=== PATIENT | male | born 1950 | race Caucasian/White ===

== ENCOUNTER 2018-02-05 13:33 | Emergency (ER) | payer OTHER ==
--- NOTE | 2018-02-05 14:09 | ERPHSYRPT ---
- History of Present Illness Time Seen by Provider: 02/05/18 14:01 Historian: patient, family Exam Limitations: no limitations Patient Subjective Stated Complaint: vomiting since yesterday. llq abd pain Triage Nursing Assessment: to room per w/c. skin w/d, color normal, resp easy. abd soft, tender. denies diarrhea. Physician History: The patient is a 67-year-old male with his complaining of nausea and vomiting that began yesterday while at work. It was very hot yesterday. He hasn't been able to drink anything since yesterday because the vomiting. He denies being lightheaded. He denies diarrhea or constipation. He does complain of some left-sided abdominal pain but he believes it is the same kind of pain that he has with his ulcerative colitis. He denies fever. His past medical history is significant for ulcerative colitis. Timing/Duration: yesterday, constant, sudden Activities at Onset: none Quality: aching Abdominal Pain Onset Location: LUQ, LLQ Pain Radiation: no radiation Severity of Pain-Max: mild Severity of Pain-Current: mild Modifying Factors: Improves With: vomiting Associated Symptoms: nausea, vomiting, weakness, No diarrhea Previous symptoms: same symptoms as today Allergies/Adverse Reactions: No Known Drug Allergies Allergy (Verified 02/05/18 13:53) Home Medications: Escitalopram Oxalate 10 mg [Lexapro 10 MG] 10 mg PO DAILY 02/05/18 [History] Hyoscyamine Sulfate 0.375 mg [Levbid 0.375 mg Sr] 0.375 mg PO 02/05/18 [ History] Levothyroxine Sodium 88 Mcg [Synthroid 88 Mcg] 88 mcg PO DAILY 02/05/18 [ History] sulfaSALAzine [Sulfasalazine] 500 mg PO BID 02/05/18 [History] Hx Tetanus, Diphtheria Vaccination/Date Given: No Hx Influenza Vaccination/Date Given: Yes Hx Pneumococcal Vaccination/Date Given: No Immunizations Up to Date: No - Review of Systems Constitutional: No Fever, No Chills Eyes: No Symptoms Ears, Nose, & Throat: No Symptoms Respiratory: No Cough, No Dyspnea Cardiac: No Chest Pain, No Edema, No Syncope Abdominal/Gastrointestinal: Abdominal Pain, Nausea, Vomiting, No Diarrhea, No Constipation Genitourinary Symptoms: No Dysuria Musculoskeletal: No Back Pain, No Neck Pain Skin: No Rash Neurological: No Dizziness, No Focal Weakness, No Sensory Changes Psychological: No Symptoms Endocrine: No Symptoms Hematologic/Lymphatic: No Symptoms Immunological/Allergic: No Symptoms All Other Systems: Reviewed and Negative - Past Medical History Pertinent Past Medical History: Yes GI Medical History: Colitis, Diverticulosis, GERD Psycho-Social History: Depression Male Reproductive Disorders: Prostate Cancer Other Medical History: LYMPHOMA - Past Surgical History Past Surgical History: Yes Musculoskeletal: Orthopedic Surgery - Social History Smoking Status: Never smoker Exposure to second hand smoke: No Drug Use: none Patient Lives Alone: No - Nursing Vital Signs Nursing Vital Signs: Initial Vital Signs Temperature 98.1 F 02/05/18 13:46 Pulse Rate 85 02/05/18 13:46 Respiratory Rate 16 02/05/18 13:46 Blood Pressure 100/68 02/05/18 13:46 O2 Sat by Pulse Oximetry 98 02/05/18 13:46 Pain Scale Pain Intensity 2 - Physical Exam General Appearance: mild distress Eye Exam: PERRL/EOMI, eyes nml inspection Ears, Nose, Throat Exam: normal ENT inspection, pharynx normal, moist mucous membranes Neck Exam: normal inspection, non-tender, supple, full range of motion Respiratory Exam: normal breath sounds, lungs clear, No respiratory distress Cardiovascular Exam: regular rate/rhythm, normal heart sounds Gastrointestinal/Abdomen Exam: tenderness (mild on left side) Rectal Exam: not done Back Exam: normal inspection, normal range of motion, No CVA tenderness, No vertebral tenderness Extremity Exam: normal inspection, normal range of motion, pelvis stable Neurologic Exam: alert, oriented x 3, cooperative, normal mood/affect, nml cerebellar function, sensation nml, No motor deficits Skin Exam: normal color, warm, dry SpO2 Interpretation: normal SpO2: 98 Oxygen Delivery: Room Air - CT Exams Abdomen/Pelvis CT Interpretation: Tele-radiologist Report, Other (indeterminant hepatic hypodense lesions; gallbladder slludge/gravel; per Dr Quinn) - Radiology Ultrasound Exam Gallbladder Ultrasound: gall bladder stones (per U/S technologist) Ordered Tests: Active Orders 24 hr Category Date Time Status IV Insertion STAT Care 02/05/18 14:13 Active ABDOMEN AND PELVIS W/0 CONTRAS [CT] Stat Exams 02/05/18 15:09 Completed GALLBLADDER [US] Stat Exams 02/05/18 16:18 Taken AMYLASE Stat Lab 02/05/18 14:20 Completed CBC W DIFF Stat Lab 02/05/18 14:20 Completed CMP Stat Lab 02/05/18 14:20 Completed LIPASE Stat Lab 02/05/18 14:20 Completed Lactic Acid Stat Lab 02/05/18 15:23 Completed Medication Summary Discontinued Medications Generic Name Dose Route Start Last Admin Trade Name Freq PRN Reason Stop Dose Admin Famotidine 20 mg 02/05/18 14:13 02/05/18 14:26 Pepcid 20 Mg Vial IV 02/05/18 14:14 20 mg STAT ONE Administration Famotidine Confirm 02/05/18 14:23 Pepcid 20 Mg Vial Administered 02/05/18 14:24 Dose 20 mg IV .STK-MED ONE Sodium Chloride 1,000 mls @ 999 mls/hr 02/05/18 14:13 02/05/18 14:26 Sodium Chloride 0.9% 1000 Ml IV 02/05/18 15:13 999 mls/hr .Q1H1M STA Administration Sodium Chloride Confirm 02/05/18 14:23 Sodium Chloride 0.9% 1000 Ml Administered 02/05/18 14:24 Dose 1,000 mls @ ud .ROUTE .STK-MED ONE Sodium Chloride 1,000 mls @ 999 mls/hr 02/05/18 16:17 02/05/18 16:28 Sodium Chloride 0.9% 1000 Ml IV 02/05/18 17:17 999 mls/hr .Q1H1M STA Administration Sodium Chloride Confirm 02/05/18 16:21 Sodium Chloride 0.9% 1000 Ml Administered 02/05/18 16:22 Dose 1,000 mls @ ud .ROUTE .STK-MED ONE Ondansetron HCl 4 mg 02/05/18 14:13 02/05/18 14:26 Zofran 4 Mg/2 Ml Vial IV 02/05/18 14:14 4 mg STAT ONE Administration Ondansetron HCl Confirm 02/05/18 14:22 Zofran 4 Mg/2 Ml Vial Administered 02/05/18 14:23 Dose 4 mg .ROUTE .STK-MED ONE Promethazine HCl 25 mg 02/05/18 16:17 02/05/18 16:28 Phenergan 25 Mg Inj IV 02/05/18 16:18 25 mg STAT ONE Administration Promethazine HCl Confirm 02/05/18 16:21 Phenergan 25 Mg Inj Administered 02/05/18 16:22 Dose 25 mg .ROUTE .STK-MED ONE Lab/Rad Data: Laboratory Result Diagrams 02/05/18 14:20 02/05/18 14:20 Laboratory Results 02/05/18 02/05/18 02/05/18 Range/Units 15:23 14:20 14:20 WBC 8.9 (4.0-10.5) K/mm3 RBC 3.94 L (4.1-5.6) M/mm3 Hgb 13.3 (12.5-18.0) gm/dl Hct 40.3 L (42-50) % MCV 102.3 H (78-100) fl MCH 33.7 H (26-32) pg MCHC 33.0 (32-36) g/dl RDW 14.7 H (11.5-14.0) % Plt Count 269 (150-450) K/mm3 MPV 9.8 H (6-9.5) fl Gran % 64.5 (36.0-66.0) % Eos # (Auto) 0.14 (0-0.5) Absolute Lymphs (auto) 2.22 (1.0-4.6) Absolute Monos (auto) 0.75 (0.0-1.3) Lymphocytes % 25.1 (24.0-44.0) % Monocytes % 8.5 (0.0-12.0) % Eosinophils % 1.6 (0.00-5.0) % Basophils % 0.3 (0.0-0.4) % Absolute Granulocytes 5.72 (1.4-6.9) Basophils # 0.03 (0-0.4) Sodium 141 (137-145) mmol/L Potassium 3.8 (3.5-5.1) mmol/L Chloride 106 (98-107) mmol/L Carbon Dioxide 22 (22-30) mmol/L Anion Gap 15.9 H (5-15) MEQ/L BUN 12 (9-20) mg/dL Creatinine 0.91 (0.66-1.25) mg/dL Estimated GFR > 60.0 ML/MIN Glucose 108 H (74-106) mg/dL Lactic Acid 1.5 (0.4-2.0) Calcium 9.2 (8.4-10.2) mg/dL Total Bilirubin 0.60 (0.2-1.3) mg/dL AST 41 (17-59) U/L ALT 43 (0-50) U/L Alkaline Phosphatase 51 (38-126) U/L Serum Total Protein 7.2 (6.3-8.2) g/dL Albumin 4.4 (3.5-5.0) g/dL Amylase 71 (30-110) U/L Lipase 85 (23-300) U/L - Progress Progress: improved Progress Note: 02/05/18 18:13 PE did not show any RUQ abd pain. 02/05/18 18:33 Pt received zofran 4 mg, phenergan 25 mg, and 2 L of NS by IV. Counseled pt/family regarding: lab results, diagnosis, need for follow-up, rad results - Departure Time of Disposition: 18:34 Departure Disposition: Home Clinical Impression: Vomiting Condition: Stable Critical Care Time: No Referrals: RANDY MARTELL MD [Primary Care Provider] - Additional Instructions: You had been experiencing vomiting and that led to dehydration. You received Zofran 4 mg, Phenergan 25 mg, and 2 L of fluids by IV in the ER. The CT scan of her abdomen and the gallbladder ultrasound showed gallstones. Because you were not tender to touch over the gallbladder, and because your white count was normal, I would like for you to follow-up tomorrow with a call to Dr. Martell regarding the findings of gallstones. You may continue to take either Phenergan 25 mg every 8 hours or Zofran 4 mg ODT every 6 hours. Prescriptions: Ondansetron ODT 4 MG [Zofran Odt 4 mg] 1 tab PO Q6H PRN PRN #10 tab.rapdis PRN Reason: Nausea/Vomiting Promethazine HCl 25 mg [Phenergan 25 mg] 25 mg PO Q8H PRN PRN #10 tablet PRN Reason: Vomiting
[2018-02-05] MEDS ORDERED: Zofran 4 MG/2 ML VIAL IV ONE (14:13)
[2018-02-05] MEDS ORDERED: Sodium Chloride 0.9% 1000 ML 1,000 ML IV STA ×2 (14:13→16:17)
[2018-02-05] MEDS ORDERED: Pepcid 20 MG VIAL IV ONE ×2 (14:13→14:23)
[2018-02-05] MEDS ORDERED: Zofran 4 MG/2 ML VIAL ONE (14:22)
[2018-02-05] MEDS ORDERED: Sodium Chloride 0.9% 1000 ML 1,000 ML ONE ×2 (14:23→16:21)
[2018-02-05 14:27] LABS: BASOPHIL % 0.3 % (0.0-0.4); Basophil (Absolute #) 0.03 (0-0.4); Eosinophil % 1.6 % (0.00-5.0); Eosinophil (Absolute #) 0.14 (0-0.5); Granulocyte Absolute (ANC) 5.72 (1.4-6.9); Granulocytes % 64.5 % (36.0-66.0); Hematocrit 40.3 % (42-50); Hemoglobin 13.3 gm/dl (12.5-18.0); Lymphocyte (Absolute #) 2.22 (1.0-4.6); Lymphocytes % 25.1 % (24.0-44.0); Mean Cell Volume 102.3 fl (78-100); Mean Platelet Volume 9.8 fl (6-9.5); Monocyte (Absolute #) 0.75 (0.0-1.3); Monocytes % 8.5 % (0.0-12.0); Platelet Count 269 K/mm3 (150-450); Red Blood Count 3.94 M/mm3 (4.1-5.6); Red Cell Distribution Width 14.7 % (11.5-14.0); White Blood Count 8.9 K/mm3 (4.0-10.5)
[2018-02-05 14:39] LABS: Mean Corpuscular Hemoglobin 33.7 pg (26-32)
[2018-02-05 14:45] LABS: ALBUMIN 4.4 g/dL (3.5-5.0); ALKALINE PHOSPHATASE 51 U/L (38-126); AMYLASE 71 U/L (30-110); ANION GAP 15.9 MEQ/L (5-15); BLOOD UREA NITROGEN 12 mg/dL (9-20); CHLORIDE 106 mmol/L (98-107); Calcium 9.2 mg/dL (8.4-10.2); Carbon Dioxide 22 mmol/L (22-30); Creatinine 1 0.91 mg/dL (0.66-1.25); Glucose 108 mg/dL (74-106); LIPASE 85 U/L (23-300); Potassium 3.8 mmol/L (3.5-5.1); SGOT/AST 41 U/L (17-59); SGPT/ALT 43 U/L (0-50); SODIUM 141 mmol/L (137-145); Total Protein 7.2 g/dL (6.3-8.2)
[2018-02-05 16:01] VITALS: O2SAT 98
--- NOTE | 2018-02-05 16:15 | XRAY ---
Indication: Nausea and vomiting. Multiple contiguous axial images obtained through the abdomen and pelvis without contrast as ordered. Comparison: None Lung bases demonstrates mild pulmonary emphysema with minimal bilateral dependent atelectasis. No infiltrate or effusion. Heart is not enlarged. Noncontrasted stomach and bowel loops appear nonobstructed. Undigested medication/pills in the cecum. Appendix not seen. No free fluid/air. Liver demonstrates a few small round indeterminate hypodense lesions, largest in the inferior right lobe measuring 2.1 cm. Minimal gallbladder sludge/gravel without abnormal biliary distention. Benign prostate calcifications. Remaining liver, gallbladder, pancreas, spleen, adrenal glands, kidneys, ureters, and bladder appear unremarkable for noncontrast exam. Moderate aortoiliac calcifications without AAA. Osseous structures intact with lower lumbar degenerative changes. No ventral or inguinal hernias. Impression: 1. Indeterminant hepatic hypodense lesions on this noncontrast exam. Contrasted exam may yield further information if clinically warranted. 2. Gallbladder sludge/gravel better evaluated with ultrasound. 3. Pulmonary emphysema and benign prostate calcifications. CTDI 8.44
[2018-02-05] MEDS ORDERED: Phenergan 25 MG INJ IV ONE (16:17)
[2018-02-05] MEDS ORDERED: Phenergan 25 MG INJ ONE (16:21)
[2018-02-05 17:12] VITALS: PULSE 87
--- NOTE | 2018-02-05 18:47 | XRAY ---
Indication: Gallbladder gravel/sludge on same-day CT. Two-dimensional gallbladder sonogram performed. Comparison: None Gallbladder partially contracted with mild intraluminal sludge and tiny gallstones in the dependent portion. Borderline gallbladder wall thickening reasonably explained by contracted gallbladder. No pericholecystic fluid. Common bile duct measures 3.5 mm. No intrahepatic biliary distention. Visualized portions of the liver demonstrates multiple cysts, largest 2.1 cm in the right lobe. No solid hepatic mass or ascites. Right kidney measures 8.7 cm in length and appears sonographically unremarkable. Impression: 1. Contracted gallbladder with intraluminal sludge/gallstones. No sonographic evidence for acute cholecystitis or biliary distention. 2. Incidental hepatic cysts. Comment: Preliminary report was given.
[2018-02-05 19:03] VITALS: BP 122/66
== END 2018-02-05 18:58 | disposition home or self-care (01) ==
LOC: ED 13:33
DX: R11.2 Nausea with vomiting, unspecified (principal); E86.0 Dehydration; R10.32 Left lower quadrant pain; R10.12 Left upper quadrant pain; Z79.899 Other long term (current) drug therapy; K80.80 Other cholelithiasis without obstruction
CPT/HCPCS: 36000; 36415; 74176; 76705; 80053; 82150; 83605; 83690; 85025; 96360; 96361; 96374; 96375; 99285; J2405; J2550

== ENCOUNTER 2018-03-18 10:45 | Day surgery (SDC) | payer OTHER ==
--- NOTE | 2018-03-18 09:02 | HP ---
DATE OF SURGERY: 03/18/2018 HISTORY OF PRESENT ILLNESS: The patient is a 67 year-old who had first episode five years ago. He had been doing well until a few weeks ago. He was in the emergency department. CT scan showed gallstones. No pain. No jaundice. History of ulcerative colitis in the past. Apparently just nausea and vomiting. PAST MEDICAL HISTORY: Ulcerative colitis, hypothyroidism. PAST SURGICAL HISTORY: Right knee surgery and back surgery in the past. MEDICATIONS: Citalopram, ferrous sulfate, folic acid, hyoscyamine, Imodium AD, levothyroxine for hypothyroidism, ondansetron, promethazine, sulfasalazine, triamcinolone cream. ALLERGIES: LATEX, NATURAL RUBBER. FAMILY HISTORY: Heart disease in the family. SOCIAL HISTORY: No smoking or alcohol abuse. REVIEW OF SYSTEMS: Twelve systems reviewed. No chest pain or palpitations other systems negative or noncontributory as above and per preadmission questionnaire. PHYSICAL EXAMINATION: GENERAL: No acute distress. HEENT: Sclerae nonicteric. NECK: No JVD. CHEST: Equal excursion, nonlabored breathing. CVS: Regular rate and rhythm. ABDOMEN: Soft. No peritoneal signs. EXTREMITIES: No significant edema. NEURO: Alert, moving extremities symmetrically. No gross motor deficits noted. IMPRESSION: Symptomatic cholelithiasis probable chronic cholecystitis. I feel the patient will benefit from cholecystectomy. Shown the gallbladder pamphlet, risk sheet and explained the procedure in detail including but not limited to bleeding or infection, risk of bowel injury or perforation, risk of trocar injury or hernia, small risk of bile leak, bile duct injury, retained stone or sludge possibly requiring further procedure either open or ERCP, general risk of anesthesia, deep venous thrombosis, pulmonary embolism, pneumonia possibility need to convert to open procedure, possibility the procedure may not improve his symptoms. He may need further work up and/or testing, endoscopy, other studies or procedures. He understands and agrees to the planned procedure, will proceed with laparoscopic cholecystectomy with possible open as an outpatient.
[~2018-03-18 10:45] MED LIST: Lactated Ringers 1,000 ML IV ONE; Sensorcaine 0.25% 10 ML ONE
[2018-03-18] MEDS ORDERED: Quelicin Fliptop 200 MG/10 ML IJ ONE (10:46)
[2018-03-18] MEDS ORDERED: TORAdol 30 mg Injection IJ ONE (10:46)
[2018-03-18] MEDS ORDERED: Decadron 4 MG INJ IV ONE (10:46)
[2018-03-18] MEDS ORDERED: DIPRIVAN 200 MG/20 ML IV ONE (10:46)
[2018-03-18] MEDS ORDERED: BRIDION 200MG/2ML IV ONE (10:46)
[2018-03-18] MEDS ORDERED: SUBLIMAZE 100 MCG/2 ML IV ONE (10:46)
[2018-03-18] MEDS ORDERED: Zemuron 100 MG/10 ML IJ ONE (10:46)
[2018-03-18] MEDS ORDERED: Zofran 4 MG/2 ML VIAL IV ONE (10:46)
[2018-03-18] MEDS ORDERED: MEFOXIN 2 GM PREMIX** 2 GM/50 ML ML IV SCH (11:00)
[2018-03-18] MEDS ORDERED: Lactated Ringers 1,000 ML IV SCH (11:00)
[2018-03-18] MEDS ORDERED: Lactated Ringers 1,000 ML IV ONE (11:38)
[2018-03-18] MEDS ORDERED: Zofran 4 MG/2 ML VIAL IV STA (11:39)
[2018-03-18] MEDS ORDERED: SUBLIMAZE 100 MCG/2 ML ONE (14:35)
[2018-03-18] MEDS ORDERED: NORCO 5/325 MG PO PRN (15:56)
[2018-03-18] MEDS ORDERED: NORCO 5/325 MG ONE (15:58)
[2018-03-18 16:18] VITALS: O2SAT 98
[2018-03-18 17:06] VITALS: BP 129/69; PULSE 75
--- NOTE | 2018-03-19 10:15 | OP ---
SURGERY DATE/TIME: 03/18/2018 1320 PREOPERATIVE DIAGNOSIS: Symptomatic cholelithiasis, chronic cholecystitis. POSTOPERATIVE DIAGNOSIS: Chronic cholecystitis, cholelithiasis. PROCEDURE: Laparoscopic cholecystectomy. SURGEON: Dr. Harpal Malone. ASSISANT: Phil Terrell M.D., [facility] Resident. ANESTHESIA: General. ESTIMATED BLOOD LOSS: Minimal. INDICATIONS: As noted above. Risks and benefits explained in detail but not limited to and consent obtained. DESCRIPTION OF PROCEDURE AND FINDINGS: The patient was taken to the OR. General anesthesia induced. After official time out and no disagreement with planned procedure, prepped and draped in usual sterile fashion, a transverse incision made at the supraumbilical area. Fascia grasped and pulled upward. Veress needle inserted and tested with saline. Pneumoperitoneum accomplished insufflating opening pressure of 0-15. He had some CO2 insufflated in the preperitoneal space. A 5 mm bladeless port and camera inserted intraabdominal secondary to port replacement. Two - 5 mm right upper quadrant ports placed and 5 mm epigastric port and a 10/11 was placed at the umbilical area. Again, there was no evidence of any visceral or other issues just a little bit of CO2 insufflated in the preperitoneal space which had fairly dissipated by the end of the procedure. The gallbladder is grasped. It had extensive chronic inflammatory reaction chronic. It was dissected posterior-lateral to anterior fashion. This took quite some time given extensive dense chronic inflammatory reaction but slowly and carefully accomplished. Cystic duct dissected off allowing access to the artery which is isolated, clipped x3 and divided, this opened up the angle. Cystic duct infundibular junction slowly and carefully well skeletonized until critical view obtained both anteriorly and posteriorly this was clipped x3 and divided in usual fashion. There was quite chronic vascular inflammatory reaction. It required clipping additional oozing side branches off the cystic artery that were oozing directly on the gallbladder as necessary. The gallbladder is slowly and carefully dissected free from its dense almost concrete attachments to the liver bed staying directly on the gallbladder wall. One of the retractors tore a small pin hole and a small amount of bile spilled. There is no evidence of any obvious stone spillage. After confirming the clips to be in place in cystic duct and cystic artery stumps, the gallbladder is released from its final attachments, placed in Pleatman sac and pulled out the 10/11 port at the supraumbilical area and passed off. Fascial defect closed with two - #1 Vicryl with puncture closure device under direct vision of the camera. There had been a little bit of ooze in the fascial defect at the second suture. Good hemostasis noted. Port had been replaced. Copious amount of irrigation accomplished laterally to the liver and subhepatic space irrigating until clear. Liver bed re-inspected. There was a small amount of ooze on the liver capsule perineal edge. There were small oozing vessels controlled with Ligaclips. Good hemostasis noted. Clips noted in place in cystic duct and cystic artery stumps. There were no signs of any active bleeding or bile leakage. It was felt there was no benefit from drain placement. Copious amount of irrigation irrigating clear. At this point pneumoperitoneum decompressed. The wound was irrigated out. Skin incision closed with 4-0 Vicryl. Steri-Strips and sterile dressing applied. 0.25% Marcaine local injected along the skin incision fascial defect. The patient tolerated the procedure well. There were no immediate complications. Findings discussed with the family out in the waiting area.
== END 2018-03-18 17:00 | disposition home or self-care (01) ==
LOC: SDC 10:45
PROVIDERS: ATTEND Surgery
DX: K80.10 Calculus of gallbladder with chronic cholecystitis without obstruction (principal); E03.9 Hypothyroidism, unspecified
CPT/HCPCS: 88304; 94250; J0330; J0694; J1100; J1885; J2405; J2704; J3010; A9270-GY

== ENCOUNTER 2018-03-20 23:02 | Emergency (ER) | payer OTHER ==
--- NOTE | 2018-03-20 23:37 | ERPHSYRPT ---
- History of Present Illness Time Seen by Provider: 03/20/18 23:20 Source: patient, family Exam Limitations: no limitations Patient Subjective Stated Complaint: pt is alert and oriented. pt is ambulatory. pt states that he had a cholecystectomy on sunday03/18/18 with no complications post op. pt states that tonight when he was getting into the shower he noticed a bruise on his LRQ. pt has a small incision on his LRQ, upper center of abdomen, and above his umbilicus. pt has a bruise along his lower left hip. pt denies hitting it or falling down. Triage Nursing Assessment: see above Physician History: 67 y/o white male presents 2 days post laparoscopic cholecystectomy. pt c/o new bruising right side of abd inferior to and posterolateral to ruq port site. pt states he is feeling well, eating well and does not have any sig increase in pain. he is primarily concerned about the new bruising present. his preop hemoglobin 11.6 on 03/02/18. Timing/Duration: today Severity: mild Location: torso Possible Causes: other (post op) Associated Symptoms: denies symptoms, No blisters, No change in skin texture, No difficulty breathing Allergies/Adverse Reactions: Latex, Natural Rubber Allergy (Severe, Verified 03/13/18 12:31) Rash Rash and swelling Home Medications: Hyoscyamine Sulfate 0.375 mg [Levbid 0.375 mg Sr] 0.375 mg PO TID PRN 02/05 [History] Levothyroxine Sodium 88 Mcg [Synthroid 88 Mcg] 88 mcg PO DAILY 02/05/18 [ History] sulfaSALAzine [Sulfasalazine] 500 mg PO BID 02/05/18 [History] Escitalopram Oxalate 20 mg PO DAILY 03/13/18 [History] Ferrous Sulfate 325 mg [Feosol 325 mg] 325 mg PO BID 03/13/18 [History] Folic Acid 1 mg [Folate 1 mg] 1 mg PO DAILY 03/13/18 [History] Loperamide HCl [Imodium A-D] 2 mg PO DAILY 03/13/18 [History] Promethazine HCl 25 mg [Phenergan 25 mg] 25 mg PO Q6-8HPRN PRN 03/13/18 [ History] Triamcinolone 0.025% Cream [Triamcinolone Acetonide] 0.5 TOP BID 03/13/18 [ History] Hx Tetanus, Diphtheria Vaccination/Date Given: Yes Hx Influenza Vaccination/Date Given: Yes Hx Pneumococcal Vaccination/Date Given: No Immunizations Up to Date: Yes - Review of Systems Constitutional: No Symptoms, No Fever, No Chills, No Fatigue, No Lethargy, No Weakness Eyes: No Symptoms Ears, Nose, & Throat: No Symptoms Respiratory: No Symptoms, No Dyspnea, No Dyspnea on Exertion (LA), No Stridor, No Wheezing Cardiac: No Symptoms, No Chest Pain, No Palpitations, No Syncope Abdominal/Gastrointestinal: No Symptoms, No Abdominal Pain, No Nausea, No Vomiting, No Diarrhea Genitourinary Symptoms: No Symptoms, No Dysuria, No Frequency, No Hematuria Skin: Other (post op ecchymosis) Neurological: No Symptoms, No Dizziness, No Focal Weakness, No Gait Changes Psychological: No Symptoms, No Alcohol Abuse, No Drug Abuse, No Anxiety Endocrine: No Symptoms Hematologic/Lymphatic: Anemia (chronic ) Immunological/Allergic: No Symptoms - Past Medical History Pertinent Past Medical History: Yes Neurological History: No Pertinent History ENT History: No Pertinent History Cardiac History: No Pertinent History Respiratory History: No Pertinent History Endocrine Medical History: No Pertinent History Musculoskeletal History: No Pertinent History GI Medical History: Colitis, Diverticulosis, GERD History: No Pertinent History Psycho-Social History: No Pertinent History Male Reproductive Disorders: No Pertinent History Other Medical History: Former smoker. Hx of anemia. ulcertive colitis - Past Surgical History Past Surgical History: Yes Neuro Surgical History: No Pertinent History Cardiac: No Pertinent History Respiratory: No Pertinent History Gastrointestinal: Cholecystectomy Genitourinary: No Pertinent History Musculoskeletal: No Pertinent History, Orthopedic Surgery Male Surgical History: No Pertinent History Other Surgical History: lower back surgery. - Social History Smoking Status: Former smoker Exposure to second hand smoke: No Drug Use: none Patient Lives Alone: No - Nursing Vital Signs Nursing Vital Signs: Initial Vital Signs Temperature 98.0 F 03/20/18 23:03 Pulse Rate 77 03/20/18 23:03 Respiratory Rate 134 H 03/20/18 23:03 Blood Pressure 134/65 03/20/18 23:03 O2 Sat by Pulse Oximetry 99 03/20/18 23:03 Pain Scale Pain Intensity 2 - Physical Exam General Appearance: no apparent distress Eye Exam: PERRL/EOMI, eyes nml inspection Ears, Nose, Throat Exam: normal ENT inspection Neck Exam: normal inspection, non-tender, supple, full range of motion Respiratory Exam: normal breath sounds, lungs clear, airway intact, No chest tenderness, No respiratory distress Cardiovascular Exam: regular rate/rhythm, normal heart sounds, normal peripheral pulses Gastrointestinal/Abdomen Exam: soft, normal bowel sounds, ecchymosis (mild band horizontally oriented inferior and posterolateral to ruq port incision site), No tenderness Rectal Exam: deferred Back Exam: normal inspection, normal range of motion, No vertebral tenderness Extremity Exam: normal inspection, normal range of motion, pelvis stable Neurologic Exam: alert, oriented x 3, cooperative, deep sea diver II-XII nml as tested, normal mood/affect, nml cerebellar function, nml station & gait Skin Exam: normal color, warm, dry, ecchymosis Lymphatic Exam: No adenopathy SpO2 Interpretation: normal SpO2: 99 Oxygen Delivery: Room Air - Course Nursing assessment & vital signs reviewed: Yes Ordered Tests: Active Orders 24 hr Category Date Time Status CBC W DIFF Stat Lab 03/20/18 00:01 Completed Lab/Rad Data: Laboratory Result Diagrams 03/20/18 00:01 Laboratory Results 03/20/18 Range/Units 00:01 WBC 5.6 (4.0-10.5) K/mm3 RBC 3.02 L (4.1-5.6) M/mm3 Hgb 10.0 L (12.5-18.0) gm/dl Hct 31.2 L (42-50) % MCV 103.3 H (78-100) fl MCH 33.1 H (26-32) pg MCHC 32.1 (32-36) g/dl RDW 14.3 H (11.5-14.0) % Plt Count 236 (150-450) K/mm3 MPV 9.7 H (6-9.5) fl Gran % 46.1 (36.0-66.0) % Eos # (Auto) 0.33 (0-0.5) Absolute Lymphs (auto) 1.86 (1.0-4.6) Absolute Monos (auto) 0.78 (0.0-1.3) Lymphocytes % 33.3 (24.0-44.0) % Monocytes % 14.0 H (0.0-12.0) % Eosinophils % 5.9 H (0.00-5.0) % Basophils % 0.7 (0.0-0.4) % Absolute Granulocytes 2.57 (1.4-6.9) Basophils # 0.04 (0-0.4) - Progress Progress: unchanged, re-examined Progress Note: 03/21/18 00:16 pt without any complaints. hgb 10.0 reviewed with pt. Counseled pt/family regarding: lab results, diagnosis - Departure Time of Disposition: 00:16 Departure Disposition: Home Clinical Impression: Encounter for postoperative wound check Condition: Good Critical Care Time: No Referrals: RANDY MARTELL MD [Primary Care Provider] - Additional Instructions: continue your postoperative instructions. follow up with your surgeon for further management
[2018-03-21 00:08] LABS: BASOPHIL % 0.7 % (0.0-0.4); Basophil (Absolute #) 0.04 (0-0.4); Eosinophil % 5.9 % (0.00-5.0); Eosinophil (Absolute #) 0.33 (0-0.5); Granulocyte Absolute (ANC) 2.57 (1.4-6.9); Granulocytes % 46.1 % (36.0-66.0); Hematocrit 31.2 % (42-50); Lymphocyte (Absolute #) 1.86 (1.0-4.6); Lymphocytes % 33.3 % (24.0-44.0); Mean Cell Volume 103.3 fl (78-100); Mean Corpuscular Hemoglobin 33.1 pg (26-32); Mean Corpuscular Hgb Concent. 32.1 g/dl (32-36); Mean Platelet Volume 9.7 fl (6-9.5); Monocyte (Absolute #) 0.78 (0.0-1.3); Platelet Count 236 K/mm3 (150-450); Red Blood Count 3.02 M/mm3 (4.1-5.6); Red Cell Distribution Width 14.3 % (11.5-14.0); White Blood Count 5.6 K/mm3 (4.0-10.5)
[2018-03-21 00:20] VITALS: BP 119/61; PULSE 74; O2SAT 98
== END 2018-03-21 00:28 | disposition home or self-care (01) ==
LOC: ED 23:02
DX: L76.82 Other postprocedural complications of skin and subcutaneous tissue (principal); Z90.49 Acquired absence of other specified parts of digestive tract
CPT/HCPCS: 36415; 85025; 99283

== ENCOUNTER 2023-08-10 19:22 | Emergency (ER) | payer MEDICARE ==
[2023-08-10 19:58] VITALS: RESP 18; TEMP 102.2
[2023-08-10] MEDS ORDERED: HYDROCODONE-ACETAMIN 2.5-108/5 ML SOLUTION PO STA ×2 (20:42→22:23)
[2023-08-10] MEDS ORDERED: HYDROCODONE-ACETAMIN 2.5-108/5 ML SOLUTION ONE ×2 (21:07→22:24)
[2023-08-10 21:13] LABS: INFLUENZA B NEGATIVE (NEGATIVE); RESPIRATORY SYNCTIAL VIRUS NEGATIVE (NEGATIVE); SARS-CoV-2 Xpert Express NEGATIVE (NEGATIVE)
[2023-08-10] MEDS ORDERED: MOTRIN 600 MG PO ONE (21:17)
[2023-08-10] MEDS ORDERED: MOTRIN 600 MG ONE (21:22)
--- NOTE | 2023-08-10 21:25 | ERPHSYRPT ---
- History of Present Illness Time Seen by Provider: 08/10/23 20:45 Source: patient, family Exam Limitations: no limitations Patient Subjective Stated Complaint: cough, fever, body aches. has Flu Triage Nursing Assessment: pt ambulated into ER without diff. Pt c/o cough x1 week, fever and generalized body aches since last night. Lungs clear throughout, slightly coarse on expiration anteriorly. Pt's was just admitted here today for Flu. Pt has dry, nonproductive cough. Physician History: This is a 73-year-old white male patient of nurse practitioner Yani who woke up this morning with sudden onset of bodyaches, fevers as high as 102 F, and nonproductive cough. Patient's was diagnosed with flu a today. Patient's room air oxygenation saturation level is 98%. Patient denies chest pain. He has no abdominal pain. He has had no nausea vomiting or diarrhea symptoms. Timing/Duration: today Cough Quality/Degree: mild, dry cough Possible Cause: no prior episodes Modifying Factors: Improves With: coughing Associated Symptoms: fever, chills, cough, muscle aches, No headache, No sore throat, No wheezing Allergies/Adverse Reactions: Latex, Natural Rubber Allergy (Severe, Verified 08/10/23 20:11) Rash Rash and swelling Home Medications: Hyoscyamine Sulfate 0.375 mg [Levbid 0.375 mg Sr] 0.375 mg PO BID 02/05/18 [History] Levothyroxine Sodium 88 Mcg [Synthroid 88 Mcg] 100 mcg PO DAILY 02/05/18 [History] sulfaSALAzine [Sulfasalazine] 500 mg PO DAILY 02/05/18 [History] Folic Acid 1 mg [Folate 1 mg] 1 mg PO DAILY 03/13/18 [History] Loperamide HCl [Imodium A-D] 2 mg PO DAILY 03/13/18 [History] Simvastatin 40 mg PO HS 08/10/23 [History] Vitamin D3/Soy Isoflavone [Iso D3 2,000 Unit Tablet] 1 tab PO DAILY 08/10/23 [History] Hx Tetanus, Diphtheria Vaccination/Date Given: Yes Hx Influenza Vaccination/Date Given: No Hx Pneumococcal Vaccination/Date Given: No Immunizations Up to Date: No Travel Risk - International Travel Have you traveled outside of the country in past 3 weeks: No - Coronavirus Screening Are you exhibiting any of the following symptoms?: Yes Symptoms: Fever, Cough: New Onset, Headaches/Body Aches/Fatigue Close contact with a COVID-19 positive Pt in past 14-21 Days: No - Vaccine Status Have you recieved a Covid-19 vaccination: Yes 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 - Review of Systems Constitutional: Fever, Chills Eyes: No Symptoms Ears, Nose, & Throat: No Symptoms Respiratory: Cough Cardiac: No Symptoms Abdominal/Gastrointestinal: No Symptoms Musculoskeletal: Arthralgias, Myalgias Skin: No Symptoms Neurological: No Symptoms Psychological: No Symptoms Endocrine: No Symptoms Hematologic/Lymphatic: No Symptoms Immunological/Allergic: No Symptoms All Other Systems: Reviewed and Negative - Past Medical History Pertinent Past Medical History: Yes Neurological History: No Pertinent History ENT History: No Pertinent History Cardiac History: No Pertinent History Respiratory History: No Pertinent History Endocrine Medical History: Hypothyroidism Musculoskeletal History: No Pertinent History, Fractures GI Medical History: Colitis, Diverticulosis, GERD, Gallbladder Disease History: No Pertinent History Psycho-Social History: Depression Male Reproductive Disorders: No Pertinent History Other Medical History: Former smoker. Hx of anemia. ulcertive colitis - Past Surgical History Past Surgical History: Yes Neuro Surgical History: No Pertinent History Cardiac: No Pertinent History Respiratory: No Pertinent History Gastrointestinal: Cholecystectomy Genitourinary: No Pertinent History Musculoskeletal: No Pertinent History, Orthopedic Surgery Male Surgical History: No Pertinent History Other Surgical History: lower back surgery. - Social History Smoking Status: Former smoker Exposure to second hand smoke: No Drug Use: none Patient Lives Alone: No - Nursing Vital Signs Nursing Vital Signs: Initial Vital Signs Temperature 102.2 F 08/10/23 19:55 Pulse Rate 95 H 08/10/23 19:55 Respiratory Rate 18 08/10/23 19:55 Blood Pressure 122/85 08/10/23 19:55 O2 Sat by Pulse Oximetry 98 08/10/23 19:55 Pain Scale Pain Intensity 6 - Physical Exam General Appearance: no apparent distress, alert, anxiety Eye Exam: PERRL/EOMI, eyes nml inspection Ears, Nose, Throat Exam: normal ENT inspection, moist mucous membranes Neck Exam: normal inspection, non-tender, supple, full range of motion Respiratory Exam: normal breath sounds, lungs clear, No chest tenderness, No respiratory distress Cardiovascular Exam: regular rate/rhythm, normal heart sounds, normal peripheral pulses Gastrointestinal/Abdomen Exam: soft, normal bowel sounds, No tenderness Rectal Exam: not done Back Exam: normal inspection, normal range of motion, No CVA tenderness, No vertebral tenderness Extremity Exam: normal inspection, normal range of motion, pelvis stable Neurologic Exam: alert, oriented x 3, cooperative, 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, normal mood/affect, nml cerebellar function, nml station & gait, sensation nml Skin Exam: normal color, warm, dry Lymphatic Exam: No adenopathy SpO2 Interpretation: normal SpO2: 98 O2 Delivery: Room Air - Course Nursing assessment & vital signs reviewed: Yes Ordered Tests: Active Orders 24 hr Category Date Time Status CHEST 1 VIEW (PORTABLE) Stat Exams 08/10/23 20:25 Taken Medication Summary Discontinued Medications Generic Name Dose Route Start Last Admin Trade Name Freq PRN Reason Stop Dose Admin Hydrocodone Bitart/Acetaminophen 10 ml 08/10/23 20:42 08/10/23 21:09 Hydrocodone/Acetaminophen 5 Ml Udcup PO 08/10/23 20:43 10 ml STAT STA Administration Hydrocodone Bitart/Acetaminophen Confirm 08/10/23 21:07 Hydrocodone/Acetaminophen 5 Ml Udcup Administered 08/10/23 21:08 Dose 10 ml .ROUTE .STK-MED ONE Methylprednisolone Sodium 0 mg 08/10/23 21:50 Succinate 125 mg/ Sterile IM 08/10/23 21:51 Water 2 ml STAT ONE Ibuprofen 600 mg 08/10/23 21:17 08/10/23 21:24 Ibuprofen 600 Mg Tablet PO 08/10/23 21:18 600 mg STAT ONE Administration Ibuprofen Confirm 08/10/23 21:22 Ibuprofen 600 Mg Tablet Administered 08/10/23 21:23 Dose 600 mg .ROUTE .STK-MED ONE Oseltamivir Phosphate 75 mg 08/10/23 21:50 Oseltamivir 75 Mg Cap PO 08/10/23 21:51 STAT ONE Lab/Rad Data: Laboratory Results 08/10/23 Range/Units 20:33 Influenza Type A Ag POSITIVE (NEGATIVE) Influenza Type B Ag NEGATIVE (NEGATIVE) RSV (PCR) NEGATIVE (NEGATIVE) SARS-CoV-2 (PCR) NEGATIVE (NEGATIVE) - Progress Progress: improved, re-examined Air Movement: good Progress Note: 08/10/23 21:25 This patient's medical issue is 1 of low complexity. The level complex in the workup performed is based on review the patient's past medical history, review the patient's medication list, review the patient's drug allergy list, history present illness and physical findings on examination. Workup in this patient includes chest x-ray, viral swabs. Will also provide the patient with hydrocodone/acetaminophen elixir for cough and fever control. In addition we will add ibuprofen for pain and fever control. 08/10/23 21:53 I interpreted the laboratory data results. Patient is positive for influenza A. We will provide the patient with a steroid injection, Tamiflu capsule and a take-home 10 mL dose of hydrocodone/acetaminophen elixir I interpreted the chest x-ray. I do not appreciate an acute infiltrate or other acute cardiopulmonary process. Blood Culture(s) Obtained: No Antibiotics given: No Counseled pt/family regarding: lab results, diagnosis, rad results Medical Desision Making - Independent Historian Additional History obtained from: Family - Diagnostic Testing Diagnostic test were ordered, analyzed, and reviewed by me: Yes Radiological Interpretation: Interpreted by me - Risk of complications The pt has a mod risk of morbidity or mortality based on: Need for prescription drug management - Departure Departure Disposition: Home Clinical Impression: Fever, Cough, Influenza A H1N1 infection Condition: Stable Critical Care Time: No Referrals: YAYA MATHEWS NP [Primary Care Provider] - Follow up/PCP as directed Additional Instructions: Drink plenty of clear liquids before advancing your diet. Use a lukewarm bath or shower to help with fever control. May add ibuprofen 600 mg orally 3 times a day with food for 5 days for fever control and pain control. Take your steroids, Tamiflu and cough medicine as prescribed. Follow-up with your primary care provider in the next 3 to 5 days for further evaluation and management Prescriptions: Prednisone 10 mg [Deltasone 10 mg] 10 mg PO TID #12 tablet Hydrocodone/Acetaminophen [Hydrocodone-Acetamn 7.5-325/15] 10 ml PO Q8H PRN #120 ml MDD 30 ml PRN Reason: Cough Oseltamivir 75 mg [Tamiflu 75MG Capsule] 75 mg PO BID #10 cap
[2023-08-10 21:26] LABS: INFLUENZA A POSITIVE (NEGATIVE)
[2023-08-10] MEDS ORDERED: Tamiflu 75MG Capsule PO ONE ×2 (21:50→22:02)
[2023-08-10] MEDS ORDERED: solu-MEDROL 125 MG, Sterile H2O 10 ml 2 ML IM ONE ×2 (21:50)
[2023-08-10] MEDS ORDERED: Sterile H2O 10 ml IJ ONE (22:02)
[2023-08-10] MEDS ORDERED: solu-MEDROL ONE (22:02)
[2023-08-10 22:10] VITALS: BP 144/68; PULSE 100; O2SAT 96
--- NOTE | 2023-08-10 22:11 | XRAY ---
Indication: Nonproductive cough. Comparison: July 02, 2011 Portable chest again hyperinflated and clear. Heart and mediastinal structures within normal limits. Bony thorax intact. Impression: Continued nonacute hyperinflated chest.
== END 2023-08-10 22:19 | disposition home or self-care (01) ==
LOC: ED 19:22
DX: J10.1 Influenza due to other identified influenza virus with other respiratory manifestations (principal); R50.9 Fever, unspecified; R05.1 Acute cough; M79.10 Myalgia, unspecified site; Z79.52 Long term (current) use of systemic steroids; Z79.891 Long term (current) use of opiate analgesic; Z79.899 Other long term (current) drug therapy
CPT/HCPCS: 0241U; 71045; 96372; 99284; J2930; A9270-GY

== ENCOUNTER 2024-05-29 15:33 | Emergency (ER) | payer MEDICARE ==
[2024-05-29 15:57] VITALS: TEMP 97.7
[2024-05-29] MEDS ORDERED: Zofran 4 MG/2 ML VIAL ONE (16:31)
--- NOTE | 2024-05-29 16:31 | ERPHSYRPT ---
- History of Present Illness Time Seen by Provider: 05/29/24 15:47 Source: patient Exam Limitations: no limitations Patient Subjective Stated Complaint: C/O pain/injury following a fall off of a ladder at home. Incident occurred approx 30 minutes prior to coming into the ER today. Indicates he was trying to fix some siding on his house, leaned over too far and the ladder moved causing him to fall. Denies hitting head or losing conciousness. C/O pain to left wrist, knee, thigh. Triage Nursing Assessment: Patient brought back to ER in a W/C. He is alert and oriented but drowsy. No SOB. Swelling noted to left wrist and forearm; denies pain in forearm. Bruising and swelling present to left knee. Bruising present to left lateral thigh. Small area of bruising present to right inner knee as well. Physician History: 73-year-old male with history of hypothyroidism, hyperlipidemia, IBS was on a 5 to 6 feet ladder, leaned too far and fell on the side hitting his left wrist, thigh and also right knee. Patient was able to get up, complaining of pain with ambulation especially in the right knee and left thigh and is unable to move left wrist. No numbness or tingling in the fingers. Did not hit his head. No loss of consciousness. Denies any chest pain, abdominal pain nausea or vomiting. Denies feeling dizzy lightheaded before or after the fall. Allergies/Adverse Reactions: Latex, Natural Rubber Allergy (Severe, Verified 05/29/24 15:50) Rash Rash and swelling Home Medications: Hyoscyamine Sulfate 0.375 mg [Levbid 0.375 mg Sr] 0.375 mg PO BID 02/05/18 [History] Levothyroxine Sodium 88 Mcg [Synthroid 88 Mcg] 100 mcg PO DAILY 02/05/18 [History] sulfaSALAzine [Sulfasalazine] 500 mg PO DAILY 02/05/18 [History] Folic Acid 1 mg [Folate 1 mg] 1 mg PO DAILY 03/13/18 [History] Loperamide HCl [Imodium A-D] 2 mg PO DAILY 03/13/18 [History] Simvastatin 40 mg PO HS 08/10/23 [History] Vitamin D3/Soy Isoflavone [Iso D3 2,000 Unit Tablet] 1 tab PO DAILY 08/10/23 [History] Hx Tetanus, Diphtheria Vaccination/Date Given: Yes Hx Influenza Vaccination/Date Given: No Hx Pneumococcal Vaccination/Date Given: No Immunizations Up to Date: Yes Travel Risk - International Travel Have you traveled outside of the country in past 3 weeks: No - Emerging Infectious Disease Are you exhibiting symptoms associated with any current EIDs: No - Review of Systems Constitutional: No Symptoms Eyes: Photophobia Ears, Nose, & Throat: No Symptoms Respiratory: No Symptoms Cardiac: No Symptoms Abdominal/Gastrointestinal: No Symptoms Genitourinary Symptoms: No Symptoms Musculoskeletal: Fall, Injury, Joint Redness, Joint Pain, No Arthralgias, No Back Pain Skin: No Symptoms Neurological: No Symptoms Endocrine: No Symptoms Hematologic/Lymphatic: No Symptoms - Past Medical History Pertinent Past Medical History: Yes Neurological History: No Pertinent History ENT History: No Pertinent History Cardiac History: No Pertinent History Respiratory History: No Pertinent History Endocrine Medical History: Hypothyroidism Musculoskeletal History: No Pertinent History, Fractures GI Medical History: Colitis, Diverticulosis, GERD, Gallbladder Disease, Other History: No Pertinent History Psycho-Social History: Depression Male Reproductive Disorders: No Pertinent History Other Medical History: Former smoker. Hx of anemia. ulcertive colitis - Past Surgical History Past Surgical History: Yes Neuro Surgical History: No Pertinent History Cardiac: No Pertinent History Respiratory: No Pertinent History Gastrointestinal: Cholecystectomy Genitourinary: No Pertinent History Musculoskeletal: No Pertinent History, Orthopedic Surgery Male Surgical History: No Pertinent History Other Surgical History: lower back surgery. - Social History Smoking Status: Former smoker Exposure to second hand smoke: No Drug Use: none Patient Lives Alone: No - Social Determinants of Health Will the patient participate in the screening: Declined to provide - Nursing Vital Signs Nursing Vital Signs: Initial Vital Signs Pulse Rate 70 05/29/24 15:44 Respiratory Rate 7 L 05/29/24 15:44 Blood Pressure 103/61 05/29/24 15:44 O2 Sat by Pulse Oximetry 99 05/29/24 15:44 Pain Scale Pain Intensity 10 - [place] Coma Score Best Eye Response (Anshu): (4) open spontaneously Best Verbal Response (Anshu): (5) oriented Best Motor Response (Anshu): (6) obeys commands Anshu Total: 15 - Physical Exam General Appearance: no apparent distress, alert Head Injury: no evidence of injury Eye Exam: PERRL/EOMI, eyes nml inspection ENT Exam: airway nml, No evidence of ENT injury, No dental injury Neck Exam: supple, trachea midline, full range of motion, normal alignment, normal inspection, No focal neuro deficit Respiratory/Chest Exam: normal breath sounds, No chest tenderness Cardiovascular Exam: normal heart sounds, regular rate/rhythm Gastrointestinal Exam: soft, normal bowel sounds, No tenderness Back Exam: normal inspection, normal range of motion Extremity Exam: other (Tenderness right knee with intact passive range of motion. Tenderness left thigh especially the posterior area with some abrasion/contusion. More muscular tenderness than the osseous. Left wrist tenderness with restricted range of motion. 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 tested, normal mood/affect, sensation nml, No motor deficits Skin Exam: normal color, warm SpO2 Interpretation: normal SpO2: 99 O2 Delivery: Room Air Ordered Tests: Active Orders 24 hr Category Date Time Status CERVICAL SPINE WO CONTRAST [CT] Stat Exams 05/29/24 16:47 Taken CHEST 1 VIEW (PORTABLE) Stat Exams 05/29/24 16:14 Completed FEMUR Stat Exams 05/29/24 16:14 Completed HEAD WITHOUT CONTRAST [CT] Stat Exams 05/29/24 16:47 Taken KNEE (3 VIEWS) Stat Exams 05/29/24 16:14 Completed WRIST (MIN 3 VIEWS) Stat Exams 05/29/24 16:14 Completed Medication Summary Discontinued Medications Generic Name Dose Route Start Last Admin Trade Name Freq PRN Reason Stop Dose Admin Hydrocodone Bitart/Acetaminophen 2 tab 05/29/24 20:53 Hydrocodone/Apap 5/325 1 Tab Tablet PO 05/29/24 20:54 SENT HOME W/ PATIENT ONE Fentanyl Citrate 50 mcg 05/29/24 16:12 05/29/24 16:38 Fentanyl Citrate 100 Mcg/2 Ml* Vial IV 05/29/24 16:13 50 mcg STAT ONE Administration Fentanyl Citrate Confirm 05/29/24 16:32 Fentanyl Citrate 100 Mcg/2 Ml* Vial Administered 05/29/24 16:33 Dose 100 mcg .ROUTE .STK-MED ONE Ondansetron HCl 4 mg 05/29/24 16:12 05/29/24 16:37 Ondansetron Hcl 4 Mg/2 Ml Vial IV 05/29/24 16:13 4 mg STAT ONE Administration Ondansetron HCl Confirm 05/29/24 16:31 Ondansetron Hcl 4 Mg/2 Ml Vial Administered 05/29/24 16:32 Dose 4 mg .ROUTE .STK-MED ONE - Progress Progress: improved Progress Note: 05/29/24 20:57 73-year-old is evaluated in the ER for a fall from a ladder almost 5 to 6 feet high on left outstretched hand headache left femur and knee. He is not in any distress. He denies hitting his head but was sleepy, I have obtained CT head and cervical spine which are negative for any acute trauma findings. Chest x- ray negative. X-rays right knee and left femur are negative for acute fracture dislocation. I believe patient has contusion on the left thigh. X-rays left wrist showed comminuted displaced fracture distal radius with intra-articular extension. He is given pain medication, feeling better on reevaluation. I have shared the x-rays with Dr. Morrison orthopedist on-call who recommended transfer as he does not do ORIF for Colles' fracture. I have called transfer center [place] and discussed with LASHON for Dr. Storey who has seen x-rays and recommended splinting, patient is placed in Ortho-Glass sugar-tong splint by RN with intact distal neurovascular after. Discussed with patient about transfer to [facility] which she does not want and other option to go to fracture clinic tomorrow morning with n.p.o. status for possible intervention he agreed. Will give him pain medications to go home. It was a clear mechanical fall, do not think needs any other workup. Discussed signs symptoms of worsening needing return to ER which he seems understanding. Stable for discharge. Counseled pt/family regarding: diagnosis, need for follow-up Medical Desision Making - Independent Historian Additional History obtained from: Spouse - Discussion of managment Care discussed with:: specialist (Orthopedics LASHON Saleh for Dr. Storey/) Reviewed:: Test results Agreed on:: Treatment plan, need for follow-up Will see patient: In office - Diagnostic Testing Diagnostic test were ordered, analyzed, and reviewed by me: Yes Radiological Interpretation: Interpreted by me, Reviewed by me - Risk of complications The pt has a mod risk of morbidity or mortality based on: Need for prescription drug management, Need for major surgery in otherwise healthy patient - Departure Departure Disposition: Home Clinical Impression: Wrist fracture, left, Knee contusion, Thigh contusion, Fall Condition: Stable Critical Care Time: No Referrals: YAYA MATHEWS NP [Primary Care Provider] - Follow up/PCP as directed Instructions: Contusion (DC), Forearm and Wrist Fractures ED Additional Instructions: Intermittent ice application. Take pain medications as needed. Follow-up with fracture clinic tomorrow morning at 8 AM. Return to ER for intractable pain, bluish discoloration of the fingertips, difficulty movements of the finger/thumb, numbness or weakness in the fingertips/thumb. Do not eat or drink after midnight. Go to fracture clinic [address] [facility] Prescriptions: Hydrocodone/Acetaminophen [Hydrocodone-Acetamin 5-325 mg] 1 tab PO Q6HPRN PRN 3 Days #12 tablet MDD 4 PRN Reason: Pain
[2024-05-29] MEDS ORDERED: SUBLIMAZE 100 MCG/2 ML ONE (16:32)
[2024-05-29] MEDS: Zofran 4 MG/2 ML VIAL IV ONE (16:37)
[2024-05-29] MEDS: SUBLIMAZE 100 MCG/2 ML IV ONE (16:38)
--- NOTE | 2024-05-29 17:06 | XRAY ---
Indication: Pain following fall. Comparison: None 2 view left femur demonstrates osteopenia and moderate scattered vascular calcifications. No other bony, articular, or soft tissue abnormalities.
--- NOTE | 2024-05-29 17:06 | XRAY ---
Indication: Status post fall. Comparison: August 10, 2023 Portable chest remains hyperinflated and clear. Heart not enlarged. Bony thorax intact. No new/acute findings.
--- NOTE | 2024-05-29 17:06 | XRAY ---
Indication: Status post fall. Comparison: None 3 view left wrist demonstrates comminuted and displaced distal radius fracture with intra-articular extension and soft tissue swelling. Fracture demonstrates bayonet apposition/alignment. Elsewhere osteopenia and moderate/advanced 1st metacarpal multangular scaphoid degenerative changes.
--- NOTE | 2024-05-29 17:06 | XRAY ---
Indication: Pain following fall. Comparison: None 3 view left knee demonstrates osteopenia, tiny suprapatella spurring, and moderate scattered vascular calcifications. No other bony, articular, or soft tissue abnormalities.
[2024-05-29 19:36] VITALS: O2SAT 99
[2024-05-29] MEDS ORDERED: NORCO 5/325 MG ONE (20:58)
[2024-05-29] MEDS: NORCO 5/325 MG PO ONE (21:01)
[2024-05-29 21:07] VITALS: BP 147/76; PULSE 80; RESP 16
[2024-05-29] MEDS ORDERED: MORPHINE SULFATE 4 MG INJ ONE (21:08)
[2024-05-29] MEDS: MORPHINE SULFATE 4 MG INJ IV ONE (21:11)
--- NOTE | 2024-05-30 08:40 | XRAY ---
Indication: Status post fall from ladder. Multiple contiguous axial images obtained through the head without contrast. Comparison: None Age-appropriate global atrophy. No acute intracranial hemorrhage, abnormal extra-axial fluid collection, or mass effect. Fourth ventricle is midline without hydrocephalus. Bony calvarium intact. Visualized paranasal sinuses and mastoid air cells are clear. Impression: Negative CT head without contrast exam.
--- NOTE | 2024-05-30 08:44 | XRAY ---
Indication: Status post fall from ladder. Multiple contiguous axial images obtained through the cervical spine. Sagittal and coronal reformatted images obtained. Comparison: None Axial images negative for acute fracture, suspicious bony lesions, or spinal canal stenosis. Minimal/mild multilevel degenerative endplate spurring greatest at C6-7 and C7. Also mild multilevel bilateral degenerative facet hypertrophy. Sagittal and coronal reformatted images demonstrates normal alignment. C6-C7 degenerative disc space loss with lesser degrees seen at C4-C5 and C7-T1 level. No acute compression fracture, subluxation, or jumped facet. Normal appearing craniocervical junction. Visualized noncontrasted soft tissues demonstrates minimal bilateral carotid calcifications. Lung apices demonstrates pulmonary emphysema and mild biapical calcified pleural plaquing. Impression: 1. Negative acute fracture/subluxation. 2. Chronic findings including multilevel degenerative spondylosis, bilateral carotid calcifications, pulmonary emphysema, and biapical calcified pleural plaquing.
== END 2024-05-29 22:11 | disposition home or self-care (01) ==
LOC: ED 15:33
DX: S52.572A Other intraarticular fracture of lower end of left radius, initial encounter for closed fracture (principal); S80.02XA Contusion of left knee, initial encounter; S70.12XA Contusion of left thigh, initial encounter; W11.XXXA Fall on and from ladder, initial encounter; Y93.H3 Activity, building and construction; Y92.007 Garden or yard of unspecified non-institutional (private) residence as the place of occurrence of the external cause; Z79.891 Long term (current) use of opiate analgesic; Z79.899 Other long term (current) drug therapy
CPT/HCPCS: 29125; 70450; 71045; 72125; 73110; 73552; 73562; 96374; 96375; 99284; J2270; J2405; J3010; A9270-GY